=== PATIENT | male | born 1950 | race Caucasian/White ===

== ENCOUNTER → 2017-12-21 12:47 | Outpatient (CLI) | payer OTHER, SELFPAY ==
--- NOTE | 2017-12-21 12:52 | ECHOD_ITS ---
Reason For Study: fatigue, NON Ischemic CMP, HTN. Procedure This was a 2D Doppler, Color Flow transthoracic echocardiogram. The exam was of fair technical quality due to diminished acoustic windows. The study was technically difficult. Exam performed in department. Left Ventricle Mildly dilated left ventricle. Mild global left ventricular systolic dysfunction. The estimated ejection fraction is 45 %. Diastolic function is indeterminate. Right Ventricle Normal RV size. Normal systolic function. Atria Normal left atrium. Normal right atrium. No doppler evidence for ASD. Mitral Valve There is no mitral annular calcification. Normal mitral valve. Trivial mitral valve insufficiency. Tricuspid Valve Normal tricuspid valve. Trivial tricuspid valve insufficiency. Right ventricular systolic pressure estimated to be 17 mmHg. Aortic Valve Trisinus/trileaflet aortic valve. Normal aortic valve. Pulmonic Valve The pulmonic valve is not well visualized. Great Vessels Normal sized aortic root. Pericardium/Pleural No pericardial effusion. MMode/2D Measurements & Calculations LVIDd: 5.9 cm IVSd: 1.1 cm Ao root diam: 3.3 cm LVIDs: 4.6 cm LVPWd: 1.1 cm RVDd: 2.8 cm FS: 22.8 % LAV(MOD-bp): 81.7 ml LA A4 area: 23.1 cm2 RA A4 area: 18.2 cm2 LAV(MOD-bp) Indexed: 41.5 ml/m2 LAV(MOD-sp2): 79.7 ml LAV(MOD-sp4): 79.6 ml Doppler Measurements & Calculations MV E max lm: 61.7 cm/sec Lat Peak E' Lm: 8.3 cm/sec Med Peak E' Lm: 6.7 cm/sec MV A max lm: 106.5 cm/sec E/E' lat: 7.4 E/E' med: 9.2 MV E/A: 0.58 Ao V2 max: 117.6 cm/sec LV V1 max: 91.6 cm/sec PA V2 max: 96.5 cm/sec Ao max P.5 mmHg LV V1 max P.4 mmHg TR max lm: 186.6 cm/sec TR max P.9 mmHg Interpretation Summary The study was technically difficult. Mildly dilated left ventricle. Mild global left ventricular systolic dysfunction. The estimated ejection fraction is 45 %. Trivial mitral valve insufficiency. Trivial tricuspid valve insufficiency. Right ventricular systolic pressure estimated to be 17 mmHg. Diastolic function is indeterminate. Ordering Physician: Joseph Dudley Referring Physician: Jamey Nolan Performed By: Jaelyn Culp, KASSY, RVT
== END ==
PROVIDERS: Family Provider Family Medicine; PCP Family Medicine; Referring Provider Internal Medicine Cardiovascular Disease; Visit Provider Internal Medicine Cardiovascular Disease
DX: I42.8 Other cardiomyopathies (principal); I47.2 Ventricular tachycardia; R55 Syncope and collapse; I34.0 Nonrheumatic mitral (valve) insufficiency; I10 Essential (primary) hypertension; R53.83 Other fatigue
CPT/HCPCS: 93306

== ENCOUNTER → 2019-11-24 09:40 | Outpatient (CLI) | payer OTHER, SELFPAY ==
[2019-11-24 09:06] VITALS: BMI 29.9
--- NOTE | 2019-11-24 09:45 | RAD_ITS ---
STUDY: X-RAY CHEST REASON FOR EXAM: Male, 69 years old. wheezing TECHNIQUE: PA and lateral views of the chest. COMPARISON: Previous study of 07/21/2016 FINDINGS: The lungs are clear and expanded. There is no demonstrated pleural abnormality. Normal size heart. Normal mediastinum and taylor. Normal visualized pulmonary arteries. There are calcified plaques of the aortic arch. There are diffuse degenerative changes of the visualized thoracic spine. Normal visualized ribs, clavicles, and shoulders. There is no demonstrated abnormality of the visualized soft tissue structures of the upper abdomen. RAD/Chest PA and Lateral IMPRESSION: Calcified plaques of the aortic arch. Endplate spondylosis of the thoracic spine. No acute cardiopulmonary disease process is seen. Electronically Signed: Gabo Redd MD at 23:28 EDT , Service support ,
== END ==
PROVIDERS: PCP Family Medicine; Referring Provider Physician Assistant Medical; Visit Provider Physician Assistant Medical
DX: R06.2 Wheezing (principal)
CPT/HCPCS: 71046

== ENCOUNTER → 2020-09-25 08:50 | Outpatient (CLI) | payer MEDICARE, OTHER, SELFPAY ==
[2020-09-05 11:19] VITALS: BMI 30.1
--- NOTE | 2020-09-25 08:51 | ECHOCS_ITS ---
Reason For Study: Cardiomyopathy Procedure This was a 2D Doppler, Color Flow transthoracic echocardiogram. The study was technically difficult. Contrast injection was performed. Exam performed in department. Left Ventricle Normal LV size. Mild concentric left ventricular hypertrophy. Left ventricular systolic function is lower limits of normal. The estimated ejection fraction is 50 %. Diastolic function is indeterminate. No regional wall motion abnormalities noted. Right Ventricle Normal RV size. Normal systolic function. Atria The left atrium is mildly enlarged. Normal right atrium. No doppler evidence for ASD. Bubble contrast study negative for right to left interatrial shunt. Mitral Valve There is no mitral annular calcification. Normal mitral valve. Trivial mitral valve insufficiency. Tricuspid Valve Normal tricuspid valve. Trivial tricuspid valve insufficiency. Unable to estimate RV systolic pressure/pulmonary artery pressure due to technically difficult study. Aortic Valve Trisinus/trileaflet aortic valve. Normal aortic valve. Pulmonic Valve The pulmonic valve is not well visualized. Great Vessels The aortic root is not well visualized. Pericardium/Pleural No pericardial effusion. Medication 22 gauge I.V. with prn adaptor inserted into right arm. Diluted definity 4ml given slow IV push to enhance endocardial definition. Performed a rapid injection of agitated mix of 9 cc saline and 1cc air to assess for atrial septal defect. MMode/2D Measurements & Calculations LVIDd: 5.3 cm IVSd: 1.5 cm LA dimension: 4.1 cm LVIDs: 4.5 cm LVPWd: 1.4 cm FS: 14.6 % LAV(MOD-bp): 72.7 ml LA A4 area: 20.8 cm2 RA A4 area: 15.4 cm2 LAV(MOD-bp) Indexed: 36.9 ml/m2 LAV(MOD-sp2): 72.2 ml LAV(MOD-sp4): 66.8 ml Time Measurements MV dec time: 0.30 sec Doppler Measurements & Calculations MV E max lm: 64.6 cm/sec Lat Peak E' Lm: 7.0 cm/sec Med Peak E' Lm: 6.5 cm/sec MV A max lm: 95.7 cm/sec E/E' lat: 9.3 E/E' med: 10.0 MV E/A: 0.68 MV V2 max: 113.2 cm/sec MV P1/2t max lm: 72.5 cm/sec Ao V2 max: 124.9 cm/sec MV max P.1 mmHg MV P1/2t: 96.5 msec Ao max P.2 mmHg MV V2 mean: 54.0 cm/sec MV dec slope: 220.1 cm/sec2 MV mean P.4 mmHg MV V2 VTI: 32.8 cm MVA(P1/2t): 2.3 cm2 LV V1 max: 83.1 cm/sec PA V2 max: 113.6 cm/sec LV V1 max P.8 mmHg ECHO/Echo Complete W/ Contrast Interpretation Summary The study was technically difficult. Contrast injection was performed. Left ventricular systolic function is lower limits of normal. The estimated ejection fraction is 50 %. Mild concentric left ventricular hypertrophy. The left atrium is mildly enlarged. Trivial mitral valve insufficiency. Trivial tricuspid valve insufficiency. Unable to estimate RV systolic pressure/pulmonary artery pressure due to techni cynthia difficult study. Diastolic function is indeterminate. Bubble contrast study negative for right to left interatrial shunt. Ordering Physician: Joseph Dudley Referring Physician: MD An Jamey Performed By: Anuel Vásquez, [facility]
== END ==
PROVIDERS: PCP Family Medicine; Referring Provider Internal Medicine Cardiovascular Disease; Visit Provider Internal Medicine Cardiovascular Disease
DX: I44.7 Left bundle-branch block, unspecified (principal)
CPT/HCPCS: 93306; Q9957; A4216; C8929; J3490

== ENCOUNTER 2023-03-04 17:00 | Outpatient (RCR) | payer MEDICARE, OTHER, SELFPAY ==
--- NOTE | 2023-02-20 07:13 | HP.OTEVAL ---
Patient's Visit Information Visit Information Visit Information: JAY JAY DASILVA is a 72 year old M, referred to Occupational Therapy by LADARIUS GUDINO, with a diagnosis of left Dupuyten's IF, RF, LF. Date of Evaluation: 02/19/23 Occupational Therapist: Joana Adams, DEXTER/Pedro, [facility] Subjective Subjective: This 72 year old male was seen for OT eval with dx of Dupuytren's contracture of left IF, RF and LF. Pt states he suffered with the inability to straighten his fingers for a while. He decided to have sx. pt arrives 1 week s/p from left Index finger, ring finger and small finger PIP joint partial palmar fasciectomy from Dupuytren's disease. pt arrives with paddle orthosis on-denies need for adj. states wearing at night and when out of house only. pt states they leave for [place] in 2 weeks and hope to continue therapy there. pt is right handed ADLs Comments: pt limited with all bilateral hand tasks limiting ind with his ADLs and IADLs. Pain left hand: Current Pain Intensity: 2 Pain Intensity Range: 0 and 3 ROM Wrist: right left 65/70 ROM Comments: left MCP PIP IF - -20/50 MF-15/ 80 0/55 RF- -30 /65 LF- -30/ 60 Strength Strength Comments: not tested at this time Edema PIP: left IF 8 MF 9 right IF 7.5 MF 7.5 Sensation Sensation Comments: felling tingle/numb to sx fingers Goals Goal:100% adherence to protocol: Yes Comment: Dr. Gudino's Protocol following Dupuytren's release Goal:Daily scar massage when approriate: Yes Goal:ROM equal to unaffected hand: Yes Goal:Air Pollution Control Engineer/Pinch strength at least 75% of unaffected hand: Yes Goal:No pain with affected hand use: Yes Goal:PIP Circumferences equal to unaffected hand: Yes Goal:Full use of affected hand in daily activities including work: Yes Rehabilitation General Assessment: pt arrives 1 week s/p from left Index finger, ring finger and small finger PIP joint partial palmar fasciectomy from Dupuytren's disease. pt demo with newly healing structures, edema in digits, incision on LF and RF have trace of seeping- pt is unable to use his left hand for ADLs at this time due to healing structures. Pt would benefit from skilled OT services 1-2x week for next 6 weeks to ensure pt gains full ROM of left hand and returns pt is PLOF. Today therapist reviewed pts Dx and Protocol. ed. on edema mtg. and wound care. pt and pts spouse demo understanding and agree to POC. Rehabilitation Potential: Excellent Anticipated Interventions Anticipated Interventions: A/AAROM/PROM, Edema Control, Scar Care, Triggerpoint Release, Wound Care, Modalities, Orthoses, Joint Protection/Energy Conservation, Ergonomic Education, Fine Motor Coord/David, Education re assistive Equipment, Education re Diagnosis, Caregiver Training and Home Program Visit Plan Frequency: 1-2x /Week Duration: 6 Weeks General Plan: S/p week 2 AROM ex May initiate PROM (check with sx first) scar mtg, edema control (coban) cont. wearing splint while sleeping S/P week 3 eval for nisa flexion or ext. loss issue a dynamic PIP ext splint per MD order /adj PRN Cont to monitor resting night splint Monitor scar maturation s/p week 4 cont splint wear -monitor splint initiate strengthening s/p 3 months d/c night splint or when approved by Dr. Gudino. TEXT: Thank you for the opportunity to evaluate your patient. For Medicare and Medicare HMO plans, please review the plan of care and approve it. It will need to be FAXED BACK to us at [phone] for Medicare purposes. Please let me know if there are questions or concerns regarding this plan of care. Physician Signature: Date:
--- NOTE | 2023-03-05 07:13 | HP.OTDCSUM_ITS ---
Discharge Summary D/C Summary: It has been my pleasure to treat JAY JAY DASILVA under orders from LADARIUS ALVARADO, for the diagnosis of left Dupuyten's IF, RF, LF for a total of 3 visit(s). Please see the following information for a summary of their discharge status. Overall Improvement % Improvement: 70 Objective Objective/Function: pt demo with MF healed- LF opened due to swelling and demo with wound- ed. family on cleaning and keeping covered until they see [facility] in [place]- IF looking good left 2 stitched proximal to keep incision from opening- therapist cleaned wound ed. family on keeping wound clean-dry and change dressing- family also ed on signs of infection. Goals Patient Goals: Regain Mobility, Decrease Swelling/Stiffness, Improve Fine Motor Skills, Use Hand/Wrist/Arm Normally Again and Be More Independent in ADLS Goal:100% adherence to protocol: Yes Goal:Daily scar massage when approriate: Yes Goal:ROM equal to unaffected hand: Yes Goal:Ammonium Hydroxide Operator/Pinch strength at least 75% of unaffected hand: Yes Goal:No pain with affected hand use: Yes Goal:PIP Circumferences equal to unaffected hand: Yes Goal:Full use of affected hand in daily activities including work: Yes Plan Plan: D/C for pt to travel for months in [place]- will be seeing [facility] in [place] D/C Information Discharge Comments: pt D/C to travel to [place] will see [facility] to continue with his recovery. d/c sentence: If there are questions or concerns regarding this patient's occupational therapy , please fell free to call me at [phone]. Thank you for the referral of this patient. Sincerely, Joana Adams, OTR/L, CHT
== END 2023-03-04 19:00 | disposition home or self-care (01) ==
LOC: OT 17:00
PROVIDERS: PCP Family Medicine
DX: M72.0 Palmar fascial fibromatosis [Dupuytren] (principal)
CPT/HCPCS: 97166; 97167; 97530

== ENCOUNTER → 2023-09-14 | Outpatient (CLI) | payer MEDICARE, OTHER, SELFPAY ==
--- NOTE | 2023-09-14 10:50 | ECHOD_ITS ---
Reason For Study: NONICM Procedure This was a 2D Doppler, Color Flow transthoracic echocardiogram. Exam performed in department. Left Ventricle Normal LV size. The estimated ejection fraction is 55 %. No evidence for diastolic dysfunction. No regional wall motion abnormalities noted. Right Ventricle Normal right ventricle. Normal systolic function. Atria The left atrium is mildly enlarged. Normal right atrium. No doppler evidence for ASD. Mitral Valve There is no mitral valve stenosis. No mitral valve insufficiency. Tricuspid Valve There is no tricuspid stenosis. Unable to estimate RV systolic pressure due to inadequate jet, pulmonary artery pressure probably normal. Aortic Valve Trisinus/trileaflet aortic valve. There is no aortic stenosis. No aortic valve insufficiency. Pulmonic Valve There is no pulmonic valvular stenosis. No pulmonic valve insufficiency. Great Vessels Normal aortic root. Pericardium/Pleural No pericardial effusion. MMode/2D Measurements & Calculations LVIDd: 6.0 cm IVSd: 0.99 cm Ao root diam: 3.3 cm LVIDs: 4.8 cm LVPWd: 0.98 cm RVDd: 3.3 cm FS: 18.9 % LAV(MOD-bp): 69.5 ml LVAd ap4: 39.7 cm2 LVAd ap2: 37.3 cm2 LAV(MOD-bp) Indexed: 32.3 ml/m2 LVLd ap4: 9.4 cm LVLd ap2: 9.0 cm LAV(MOD-sp2): 84.8 ml EDV(MOD-sp4): 138.1 ml EDV(MOD-sp2): 127.9 ml LAV(MOD-sp4): 54.3 ml EDV(sp4-el): 141.4 ml EDV(sp2-el): 131.8 ml LVAs ap4: 27.0 cm2 LVAs ap2: 23.5 cm2 LVLs ap4: 8.0 cm LVLs ap2: 7.8 cm ESV(MOD-sp4): 79.6 ml ESV(MOD-sp2): 62.9 ml ESV(sp4-el): 77.2 ml ESV(sp2-el): 59.9 ml EF(MOD-sp4): 42.4 % EF(MOD-sp2): 50.8 % EF(sp4-el): 45.4 % SV(MOD-sp4): 58.5 ml SV(MOD-sp2): 65.0 ml SV(sp4-el): 64.2 ml LA dimension(2D): 4.4 cm LA A4 area: 19.5 cm2 RA A4 area: 16.2 cm2 TAPSE: 2.0 cm Time Measurements MV dec time: 0.24 sec Doppler Measurements & Calculations MV E max lm: 57.0 cm/sec Lat Peak E' Lm: 7.6 cm/sec Med Peak E' Lm: 5.8 cm/sec MV A max lm: 77.8 cm/sec E/E' lat: 7.5 E/E' med: 9.8 MV E/A: 0.73 MV V2 max: 90.0 cm/sec MV dec slope: 241.9 cm/sec2 Ao V2 max: 115.5 cm/sec MV max P.2 mmHg Ao max P.4 mmHg MV V2 mean: 49.2 cm/sec Ao V2 mean: 73.8 cm/sec MV mean P.1 mmHg Ao mean P.6 mmHg MV V2 VTI: 38.5 cm Ao V2 VTI: 25.3 cm AV (velocity ratio): 0.81 LV V1 max: 95.6 cm/sec PA V2 max: 98.4 cm/sec LV V1 max P.7 mmHg PA V2 mean: 63.9 cm/sec LV V1 mean P.9 mmHg LV V1 mean: 64.6 cm/sec LV V1 VTI: 20.5 cm ECHO/Echo Complete Interpretation Summary The estimated ejection fraction is 55 %. No evidence for diastolic dysfunction. The left atrium is mildly enlarged. Ordering Physician: Rao Zarate Referring Physician: Rao Zarate Performed By: Haley Correia RCS
== END | disposition home or self-care (01) ==
PROVIDERS: PCP Family Medicine; Referring Provider Nurse Practitioner Family; Visit Provider Nurse Practitioner Family
DX: Z01.818 Encounter for other preprocedural examination (principal); I42.8 Other cardiomyopathies
CPT/HCPCS: 93306